=== PATIENT | female | born 1950 | race Caucasian/White ===

== ENCOUNTER → 2021-05-04 | Outpatient (CLI) | payer MEDICARE ==
[~2021-05-04] MED LIST: VIBRAMYCIN100 MG PO
== END | disposition home or self-care (01) ==
LOC: RESCLI 10:11
PROVIDERS: ATTEND Internal Medicine
DX: J44.9 Chronic obstructive pulmonary disease, unspecified (principal); I25.10 Atherosclerotic heart disease of native coronary artery without angina pectoris; K21.9 Gastro-esophageal reflux disease without esophagitis; F32.9 Major depressive disorder, single episode, unspecified; F41.1 Generalized anxiety disorder; I10 Essential (primary) hypertension; Z79.82 Long term (current) use of aspirin; Z79.899 Other long term (current) drug therapy

== ENCOUNTER → 2021-11-20 | Outpatient (CLI) | payer MEDICARE | END | disposition home or self-care (01) | LOC: RESCLI 00:39 | PROVIDERS: ATTEND Internal Medicine | DX: I11.9 Hypertensive heart disease without heart failure (principal); I25.10 Atherosclerotic heart disease of native coronary artery without angina pectoris; J44.9 Chronic obstructive pulmonary disease, unspecified; F32.9 Major depressive disorder, single episode, unspecified; F41.1 Generalized anxiety disorder; G47.00 Insomnia, unspecified; L30.9 Dermatitis, unspecified; K21.9 Gastro-esophageal reflux disease without esophagitis; Z79.899 Other long term (current) drug therapy ==

== ENCOUNTER → 2022-11-14 | Outpatient (CLI) | payer MEDICARE | END | disposition home or self-care (01) | LOC: RESCLI 10:48 | PROVIDERS: ATTEND Internal Medicine | DX: F32.9 Major depressive disorder, single episode, unspecified (principal); F41.1 Generalized anxiety disorder; I10 Essential (primary) hypertension; J44.9 Chronic obstructive pulmonary disease, unspecified; L30.9 Dermatitis, unspecified; I25.10 Atherosclerotic heart disease of native coronary artery without angina pectoris; Z88.0 Allergy status to penicillin; Z88.2 Allergy status to sulfonamides; Z88.8 Allergy status to other drugs, medicaments and biological substances; Z87.891 Personal history of nicotine dependence; Z82.49 Family history of ischemic heart disease and other diseases of the circulatory system; Z90.49 Acquired absence of other specified parts of digestive tract; Z90.710 Acquired absence of both cervix and uterus; Z98.890 Other specified postprocedural states; Z79.82 Long term (current) use of aspirin; Z79.899 Other long term (current) drug therapy ==

== ENCOUNTER 2023-12-30 19:28 | Inpatient (IN) | payer MEDICARE ==
[~2023-12-30] VITALS: Ht 162.5 cm; Wt 112.0 kg
[2023-12-30 19:35] VITALS: BP 138/84
[2023-12-30] MEDS ORDERED: Dexamethasone Sodium Phospha 20 MG/5 ML VIAL IV ONE (19:45)
[2023-12-30] MEDS ORDERED: Albuterol Sulf/Ipratropium 3 ML VIAL NEB SCH (20:00)
[2023-12-30 20:02] LABS: BASO % 0.3 % (0.0-1.0); EOS # 0.2 10*3/uL (0.0-0.4); EOS % 1.4 % (1.0-4.0); HEMATOCRIT 31.6 % (37.0-47.0); LYMPH # 0.8 10*3/uL (1.3-4.4); LYMPH % 6.5 % (27.0-41.0); MEAN CELL VOLUME 101.6 fl (81.0-99.0); MEAN CORPUSCULAR HGB 31.8 pg (27.0-31.0); MEAN CORPUSCULAR HGB CONC 31.3 g/dl (33.0-37.0); MEAN PLATELET VOLUME 10.1 fl (9.6-12.3); MONO # 0.4 10*3/uL (0.1-1.0); MONO % 3.3 % (3.0-9.0); NEUT # 10.6 10*3/uL (2.3-7.9); NEUT % 86.6 % (47.0-73.0); PLATELET COUNT AUTOMATED 173 10*3/uL (130-400); RED BLOOD COUNT 3.11 10*6/uL (4.10-5.10); RED CELL DISTRI WIDTH 14.4 % (0-14.5); WHITE BLOOD COUNT 12.2 10*3/uL (4.8-10.8)
[2023-12-30 20:13] LABS: ABG BASE EXCESS 7.3 mmol/L (-2.0-2.0); ARTERIAL BLOOD GAS PH 7.38 (7.35-7.45)
[2023-12-30 20:15] LABS: ACT PARTIAL THROMBO TIME 24.8 SECONDS (20.0-32.1)
[2023-12-30 20:20] LABS: ALKALINE PHOSPHATASE 82 U/L (46-116); BUN 22 mg/dl (9-23); CHLORIDE 98 mmol/L (98-107); TOTAL PROTEIN 6.6 gm/dL (6.0-8.0)
[2023-12-30 20:21] LABS: SGPT/ALT < 7 U/L (5-49)
[2023-12-30] MEDS ORDERED: Ceftriaxone Sodium 2 GM in SYRINGE INFUSION 20 ML IV ONE (20:40)
[2023-12-30] MEDS ORDERED: ASPIRIN, CHEWABLE 81 MG TAB PO ONE (20:50)
[2023-12-30] MEDS ORDERED: IOHEXOL 350 MG/ML 100 ML VIAL IV ONE (21:20)
[2023-12-30] MEDS ORDERED: SODIUM CHLORIDE 0.9% 100 ML BAG IV ONE (21:20)
[2023-12-30] MEDS ORDERED: MAGNESIUM SULFATE 50 ML IV ONE (21:30)
[2023-12-30] MEDS ORDERED: Iodixanol 320 100 ML VIAL IV ONE (21:35)
[2023-12-30] MEDS ORDERED: FUROSEMIDE 40 MG/4 ML VIAL IV ONE (22:20)
[2023-12-30] MEDS ORDERED: HEPARIN SODIUM 250 ML IV SCH (22:25)
[2023-12-30] MEDS ORDERED: FUROSEMIDE40 MG PO (23:22)
[2023-12-30 23:41] VITALS: BP 139/65
[2023-12-31] VITALS (7 sets, daily range): BP systolic 90–149; BP diastolic 48–110
[2023-12-31] MEDS ORDERED: ASPIRIN ADULT L81 M1 PO (00:55)
[2023-12-31] MEDS ORDERED: ADVAIR 250/501 EA INH (00:55)
[2023-12-31] MEDS ORDERED: SPIRIVA18 MCG PO (00:55)
[2023-12-31] MEDS ORDERED: DIOVAN HCT 1601 EACH PO ×2 (00:56→15:47)
[2023-12-31] MEDS ORDERED: SERTRALINE HYD100 MG PO (00:56)
[2023-12-31] MEDS ORDERED: PROAIR RESPICL90 MCG INH (00:57)
[2023-12-31] MEDS ORDERED: LIPITOR20 MG PO (00:59)
[2023-12-31] MEDS ORDERED: PRILOSEC20 M1 PO (00:59)
[2023-12-31] MEDS ORDERED: KLOR-CON M2020 ME1 PO (01:01)
[2023-12-31] MEDS ORDERED: METOPROLOL25 MG PO (01:01)
[2023-12-31] MEDS ORDERED: XANAX1 MG PO (01:01)
[2023-12-31] MEDS ORDERED: ALDACTONE25 MG PO (01:02)
[2023-12-31] MEDS ORDERED: ACETAMINOPHEN 325 MG TAB PO PRN (01:15)
[2023-12-31] MEDS ORDERED: MORPHINE Sulfate 2 MG/ML SYR IV PRN (01:15)
[2023-12-31] MEDS ORDERED: ACETAMINOPHEN 650 MG SUPP R PRN (01:15)
[2023-12-31] MEDS ORDERED: Acetaminophen/Hydrocodone 5 MG/325 MG TABLET PO PRN (01:15)
[2023-12-31] MEDS ORDERED: BISACODYL 5 MG TAB PO PRN (01:15)
[2023-12-31] MEDS ORDERED: Magnesium Hydroxide 30 ML UDC PO PRN (01:15)
[2023-12-31] MEDS ORDERED: Ondansetron Hydrochloride 4 MG/2 ML VIAL IV PRN (01:15)
[2023-12-31] MEDS ORDERED: BISACODYL 10 MG SUPP R PRN (01:15)
[2023-12-31] MEDS ORDERED: TEMAZEPAM 15 MG CAP PO PRN (01:15)
[2023-12-31] MEDS ORDERED: Albuterol Sulf/Ipratropium 3 ML VIAL NEB SCH (01:30)
[2023-12-31 05:02] LABS: ACT PARTIAL THROMBO TIME 32.4 SECONDS (20.0-32.1)
[2023-12-31 05:20] LABS: ALKALINE PHOSPHATASE 79 U/L (46-116); BUN 25 mg/dl (9-23); CHLORIDE 99 mmol/L (98-107); CHOLESTEROL 139 mg/dL (<200); FREE T4 0.95 ng/dl (0.89-1.76); LDL CHOLESTEROL 60 mg/dL (9-159); TOTAL PROTEIN 6.7 gm/dL (6.0-8.0); TRIGLYCERIDES 68 mg/dl (<150)
[2023-12-31 05:21] LABS: VITAMIN D, 25-HYDROXY 14.4 ng/mL (30-100)
[2023-12-31 05:26] LABS: SGPT/ALT < 7 U/L (5-49)
[2023-12-31 06:32] LABS: HEMATOCRIT 30.7 % (37.0-47.0); MEAN CORPUSCULAR HGB 31.2 pg (27.0-31.0); MEAN CORPUSCULAR HGB CONC 30.3 g/dl (33.0-37.0); MEAN PLATELET VOLUME 10.6 fl (9.6-12.3); PLATELET COUNT AUTOMATED 160 10*3/uL (130-400); RED BLOOD COUNT 2.98 10*6/uL (4.10-5.10); RED CELL DISTRI WIDTH 14.1 % (0-14.5); WHITE BLOOD COUNT 10.5 10*3/uL (4.8-10.8)
[2023-12-31 06:36] LABS: MANUAL DIFF REFLEX YES
[2023-12-31 07:09] LABS: PLATELET SUFFICIENCY NORMAL (NORMAL); POLYCHROMASIA SLIGHT; TOTAL CELLS COUNTED 100 #CELLS
[2023-12-31 07:10] LABS: ROULEAUX SLIGHT
[2023-12-31] MEDS ORDERED: AZITHROMYCIN 250 ML IV SCH (09:00)
[2023-12-31] MEDS ORDERED: Cholecalciferol 2,000 UNIT TABLET (50 MCG) PO SCH (10:00)
[2023-12-31] MEDS ORDERED: ASPIRIN ENTERIC COATED 81 MG TAB PO SCH (10:00)
[2023-12-31] MEDS ORDERED: Ceftriaxone Sodium 2 GM in SYRINGE INFUSION 20 ML IV SCH (10:00)
[2023-12-31] MEDS ORDERED: methylPREDNISolone sod succ 40 MG VIAL IV SCH ×2 (10:00)
[2023-12-31] MEDS ORDERED: FUROSEMIDE 40 MG/4 ML VIAL IV SCH (10:00)
[2023-12-31] MEDS ORDERED: Metoprolol Tartrate 25 MG TAB PO SCH (10:00)
[2023-12-31] MEDS ORDERED: Dextromethorphan Hydrobromid 1 TAB TAB PO SCH (10:00)
[2023-12-31] MEDS ORDERED: ATORVASTATIN CALCIUM 80 MG TAB PO SCH (10:00)
[2023-12-31] MEDS ORDERED: ALPRAZolam 0.5 MG TAB PO PRN (13:00)
[2024-01-01] VITALS: BP 138/72
[2024-01-01 03:31] LABS: POTASSIUM 4.5 mmol/L (3.4-5.1)
[2024-01-01] MEDS ORDERED: OMEPRAZOLE 20 MG CAP PO SCH (06:00)
[2024-01-01 09:00] VITALS: BP 138/54
[2024-01-01] MEDS ORDERED: Losartan Potassium 50 MG TAB PO SCH (10:00)
[2024-01-01] MEDS ORDERED: Sertraline Hydrochloride 50 MG TAB PO SCH (10:00)
[2024-01-01] MEDS ORDERED: TIOTROPIUM BROMIDE 18 MCG CAPSULES INHALER INH SCH (10:00)
[2024-01-01] MEDS ORDERED: Technetium Tc 99M Tetrofosmi 0.23 MG KIT IJ SCH (13:10)
[2024-01-01 16:00] VITALS: BP 118/53
[2024-01-01 20:00] VITALS: BP 134/42
[2024-01-01] MEDS ORDERED: hydrOXYzine pamoate 25 MG CAP PO ONE (22:20)
[2024-01-02] VITALS: BP 141/54
[2024-01-02 05:37] LABS: POTASSIUM 4.4 mmol/L (3.4-5.1)
[2024-01-02] MEDS ORDERED: Regadenoson 0.4 MG/5 ML SYR IV ONE (06:43)
[2024-01-02 08:00] VITALS: BP 129/43
[2024-01-02 09:42] LABS: BASO % 0.4 % (0.0-1.0); EOS # 0.2 10*3/uL (0.0-0.4); EOS % 1.6 % (1.0-4.0); HEMATOCRIT 27.9 % (37.0-47.0); LYMPH # 1.5 10*3/uL (1.3-4.4); LYMPH % 15.4 % (27.0-41.0); MEAN CELL VOLUME 104.9 fl (81.0-99.0); MEAN CORPUSCULAR HGB 31.6 pg (27.0-31.0); MEAN CORPUSCULAR HGB CONC 30.1 g/dl (33.0-37.0); MEAN PLATELET VOLUME 10.7 fl (9.6-12.3); MONO # 0.6 10*3/uL (0.1-1.0); MONO % 6.5 % (3.0-9.0); NEUT # 7.3 10*3/uL (2.3-7.9); NEUT % 74.2 % (47.0-73.0); NUCLEATED RED BLOOD CELL 0.3 % (0.0-0.0); PLATELET COUNT AUTOMATED 150 10*3/uL (130-400); RED BLOOD COUNT 2.66 10*6/uL (4.10-5.10); RED CELL DISTRI WIDTH 14.6 % (0-14.5); WHITE BLOOD COUNT 9.9 10*3/uL (4.8-10.8)
[2024-01-02 12:00] VITALS: BP 155/92
[2024-01-02] MEDS ORDERED: HEPARIN SODIUM 5,000 UNIT/ML VIAL SC SCH (14:00)
[2024-01-02 16:00] VITALS: BP 141/34
[2024-01-02 20:00] VITALS: BP 126/59
[2024-01-03] VITALS: BP 120/58
[2024-01-03 06:05] LABS: BUN 35 mg/dl (9-23); CHLORIDE 98 mmol/L (98-107); POTASSIUM 4.2 mmol/L (3.4-5.1)
[2024-01-03 06:33] LABS: BASO # 0.1 10*3/uL (0.0-0.1); BASO % 0.5 % (0.0-1.0); EOS # 0.3 10*3/uL (0.0-0.4); EOS % 2.5 % (1.0-4.0); HEMATOCRIT 26.8 % (37.0-47.0); LYMPH # 1.3 10*3/uL (1.3-4.4); LYMPH % 12.6 % (27.0-41.0); MEAN CELL VOLUME 103.5 fl (81.0-99.0); MEAN PLATELET VOLUME 10.9 fl (9.6-12.3); MONO # 0.6 10*3/uL (0.1-1.0); MONO % 5.9 % (3.0-9.0); NEUT # 7.8 10*3/uL (2.3-7.9); NEUT % 76.5 % (47.0-73.0); PLATELET COUNT AUTOMATED 167 10*3/uL (130-400); RED BLOOD COUNT 2.59 10*6/uL (4.10-5.10); RED CELL DISTRI WIDTH 14.4 % (0-14.5); WHITE BLOOD COUNT 10.2 10*3/uL (4.8-10.8)
[2024-01-03 08:00] VITALS: BP 126/57
[2024-01-03] MEDS ORDERED: FUROSEMIDE 40 MG TAB PO SCH (10:00)
[2024-01-03] MEDS ORDERED: FUROSEMIDE 20 MG/2 ML VIAL IV SCH (10:00)
[2024-01-03 12:00] VITALS: BP 125/52
[2024-01-03 16:00] VITALS: BP 146/119
[2024-01-03 18:32] VITALS: BP 101/50
[2024-01-03 20:00] VITALS: BP 121/56
[2024-01-04] VITALS: BP 124/56
[2024-01-04 07:10] LABS: BASO % 0.3 % (0.0-1.0); EOS # 0.3 10*3/uL (0.0-0.4); EOS % 3.1 % (1.0-4.0); LYMPH # 1.2 10*3/uL (1.3-4.4); LYMPH % 11.8 % (27.0-41.0); MEAN CELL VOLUME 101.6 fl (81.0-99.0); MEAN CORPUSCULAR HGB CONC 31.5 g/dl (33.0-37.0); MEAN PLATELET VOLUME 10.9 fl (9.6-12.3); MONO # 0.6 10*3/uL (0.1-1.0); NUCLEATED RED BLOOD CELL 0.3 % (0.0-0.0); PLATELET COUNT AUTOMATED 156 10*3/uL (130-400); RED BLOOD COUNT 2.56 10*6/uL (4.10-5.10); RED CELL DISTRI WIDTH 14.7 % (0-14.5); WHITE BLOOD COUNT 10.4 10*3/uL (4.8-10.8)
[2024-01-04 07:39] LABS: POTASSIUM 4.2 mmol/L (3.4-5.1)
[2024-01-04 08:00] VITALS: BP 103/54
[2024-01-04 12:00] VITALS: BP 112/52
[2024-01-04 16:30] VITALS: BP 135/90
[2024-01-04 20:00] VITALS: BP 111/48
[2024-01-05] VITALS: BP 115/54
[2024-01-05 05:53] LABS: POTASSIUM 4.1 mmol/L (3.4-5.1)
[2024-01-05 06:20] LABS: BASO # 0.1 10*3/uL (0.0-0.1); BASO % 0.4 % (0.0-1.0); EOS # 0.4 10*3/uL (0.0-0.4); EOS % 2.9 % (1.0-4.0); HEMATOCRIT 27.2 % (37.0-47.0); LYMPH # 1.2 10*3/uL (1.3-4.4); LYMPH % 9.5 % (27.0-41.0); MEAN CELL VOLUME 104.6 fl (81.0-99.0); MEAN CORPUSCULAR HGB 31.5 pg (27.0-31.0); MEAN CORPUSCULAR HGB CONC 30.1 g/dl (33.0-37.0); MEAN PLATELET VOLUME 10.9 fl (9.6-12.3); MONO # 0.7 10*3/uL (0.1-1.0); MONO % 5.4 % (3.0-9.0); NEUT # 9.7 10*3/uL (2.3-7.9); NEUT % 80.1 % (47.0-73.0); NUCLEATED RED BLOOD CELL 0.2 % (0.0-0.0); PLATELET COUNT AUTOMATED 156 10*3/uL (130-400); RED CELL DISTRI WIDTH 14.7 % (0-14.5); WHITE BLOOD COUNT 12.1 10*3/uL (4.8-10.8)
[2024-01-05 08:00] VITALS: BP 130/45
[2024-01-05 12:00] VITALS: BP 118/40
[2024-01-05] MEDS ORDERED: DICLOFENAC SODIUM 100 GM TUBE T PRN (14:10)
[2024-01-05 16:00] VITALS: BP 109/36
[2024-01-05 20:00] VITALS: BP 112/49
[2024-01-06] VITALS: BP 114/52
[2024-01-06 07:11] LABS: BASO % 0.3 % (0.0-1.0); EOS # 0.2 10*3/uL (0.0-0.4); EOS % 2.1 % (1.0-4.0); LYMPH % 8.8 % (27.0-41.0); MEAN CELL VOLUME 102.3 fl (81.0-99.0); MEAN CORPUSCULAR HGB 32.2 pg (27.0-31.0); MEAN CORPUSCULAR HGB CONC 31.5 g/dl (33.0-37.0); MEAN PLATELET VOLUME 10.9 fl (9.6-12.3); MONO # 0.7 10*3/uL (0.1-1.0); MONO % 5.8 % (3.0-9.0); NEUT # 9.3 10*3/uL (2.3-7.9); NEUT % 81.5 % (47.0-73.0); NUCLEATED RED BLOOD CELL 0.2 % (0.0-0.0); PLATELET COUNT AUTOMATED 155 10*3/uL (130-400); RED BLOOD COUNT 2.64 10*6/uL (4.10-5.10); WHITE BLOOD COUNT 11.5 10*3/uL (4.8-10.8)
[2024-01-06 08:00] VITALS: BP 135/54
[2024-01-06 12:00] VITALS: BP 125/61
[2024-01-06 16:00] VITALS: BP 129/61
[2024-01-06 20:00] VITALS: BP 116/44
[2024-01-07] VITALS: BP 135/60
[2024-01-07 06:52] LABS: BASO % 0.3 % (0.0-1.0); EOS # 0.2 10*3/uL (0.0-0.4); EOS % 2.1 % (1.0-4.0); HEMATOCRIT 26.1 % (37.0-47.0); LYMPH # 0.9 10*3/uL (1.3-4.4); LYMPH % 7.8 % (27.0-41.0); MEAN CELL VOLUME 103.2 fl (81.0-99.0); MEAN CORPUSCULAR HGB 31.6 pg (27.0-31.0); MEAN CORPUSCULAR HGB CONC 30.7 g/dl (33.0-37.0); MONO # 0.7 10*3/uL (0.1-1.0); MONO % 6.6 % (3.0-9.0); NEUT # 8.9 10*3/uL (2.3-7.9); NEUT % 81.5 % (47.0-73.0); PLATELET COUNT AUTOMATED 171 10*3/uL (130-400); RED BLOOD COUNT 2.53 10*6/uL (4.10-5.10); RED CELL DISTRI WIDTH 15.3 % (0-14.5); WHITE BLOOD COUNT 10.9 10*3/uL (4.8-10.8)
[2024-01-07 07:38] LABS: POTASSIUM 4.1 mmol/L (3.4-5.1)
[2024-01-07 08:00] VITALS: BP 132/52
[2024-01-07 12:00] VITALS: BP 133/54
[2024-01-07 16:00] VITALS: BP 113/84
[2024-01-07 20:00] VITALS: BP 109/60
[2024-01-07 21:49] VITALS: BP 114/57
[2024-01-08] VITALS: BP 109/50
[2024-01-08] MEDS ORDERED: Ceftriaxone Sodium 2 GM in SYRINGE INFUSION 20 ML IV SCH (00:35)
[2024-01-08] MEDS ORDERED: AZITHROMYCIN 250 ML IV SCH (00:35)
[2024-01-08 06:45] LABS: ABG BASE EXCESS 2.9 mmol/L (-2.0-2.0); ARTERIAL BLOOD GAS PH 7.312 (7.35-7.45)
[2024-01-08 06:46] LABS: BASO # 0.1 10*3/uL (0.0-0.1); BASO % 0.3 % (0.0-1.0); EOS # 0.2 10*3/uL (0.0-0.4); EOS % 1.5 % (1.0-4.0); LYMPH # 1.3 10*3/uL (1.3-4.4); MEAN CELL VOLUME 105.5 fl (81.0-99.0); MEAN CORPUSCULAR HGB 31.6 pg (27.0-31.0); MEAN PLATELET VOLUME 11.4 fl (9.6-12.3); MONO # 1.1 10*3/uL (0.1-1.0); MONO % 7.1 % (3.0-9.0); NEUT # 12.8 10*3/uL (2.3-7.9); NEUT % 81.8 % (47.0-73.0); NUCLEATED RED BLOOD CELL 0.1 % (0.0-0.0); RED BLOOD COUNT 2.75 10*6/uL (4.10-5.10); RED CELL DISTRI WIDTH 15.6 % (0-14.5); WHITE BLOOD COUNT 15.7 10*3/uL (4.8-10.8)
[2024-01-08 07:07] LABS: PLATELET COUNT AUTOMATED 252 10*3/uL (130-400)
[2024-01-08 07:24] LABS: POTASSIUM 4.1 mmol/L (3.4-5.1)
[2024-01-08 08:00] VITALS: BP 127/58
[2024-01-08] MEDS ORDERED: Vancomycin Hydrochloride 1,000 MG VIAL IV SCH (09:50)
[2024-01-08] MEDS ORDERED: CEFEPIME HYDROCHLORIDE IV SCH (11:00)
[2024-01-08] MEDS ORDERED: SODIUM CHLORIDE 0.9% IV SCH (11:00)
[2024-01-08] MEDS ORDERED: VANCOMYCIN/WATER FOR INJ (PEG) 250 ML IV SCH (12:00)
[2024-01-08 12:06] VITALS: BP 130/60
[2024-01-08 13:17] LABS: ABG BASE EXCESS 9.8 mmol/L (-2.0-2.0); ARTERIAL BLOOD GAS PH 7.336 (7.35-7.45)
[2024-01-08 16:00] VITALS: BP 105/50
[2024-01-08 20:00] VITALS: BP 106/49
[2024-01-09] VITALS: BP 96/47
[2024-01-09] MEDS ORDERED: AZITHROMYCIN 250 ML IV SCH (01:00)
[2024-01-09] MEDS ORDERED: Ceftriaxone Sodium 2 GM in SYRINGE INFUSION 20 ML IV SCH (02:00)
[2024-01-09 06:39] LABS: ABG BASE EXCESS 8.2 mmol/L (-2.0-2.0); ARTERIAL BLOOD GAS PH 7.305 (7.35-7.45)
[2024-01-09 07:02] LABS: BASO % 0.3 % (0.0-1.0); EOS # 0.5 10*3/uL (0.0-0.4); EOS % 4.7 % (1.0-4.0); HEMATOCRIT 24.6 % (37.0-47.0); LYMPH # 0.6 10*3/uL (1.3-4.4); LYMPH % 6.2 % (27.0-41.0); MEAN CELL VOLUME 103.4 fl (81.0-99.0); MEAN CORPUSCULAR HGB 32.4 pg (27.0-31.0); MEAN CORPUSCULAR HGB CONC 31.3 g/dl (33.0-37.0); MEAN PLATELET VOLUME 11.4 fl (9.6-12.3); MONO # 0.6 10*3/uL (0.1-1.0); MONO % 5.8 % (3.0-9.0); NEUT # 8.4 10*3/uL (2.3-7.9); NEUT % 81.7 % (47.0-73.0); RED BLOOD COUNT 2.38 10*6/uL (4.10-5.10); RED CELL DISTRI WIDTH 15.8 % (0-14.5); WHITE BLOOD COUNT 10.3 10*3/uL (4.8-10.8)
[2024-01-09 07:03] LABS: PLATELET COUNT AUTOMATED 172 10*3/uL (130-400)
[2024-01-09 08:00] VITALS: BP 142/70
[2024-01-09] MEDS ORDERED: SODIUM CHLORIDE 0.9% 500 ML IV ONE (10:50)
[2024-01-09 12:00] VITALS: BP 108/44
[2024-01-09 16:00] VITALS: BP 108/50
[2024-01-09 20:00] VITALS: BP 99/79
[2024-01-10] VITALS: BP 112/48
[2024-01-10 05:02] LABS: POTASSIUM 3.5 mmol/L (3.4-5.1)
[2024-01-10 06:02] LABS: BASO % 0.3 % (0.0-1.0); EOS # 0.6 10*3/uL (0.0-0.4); EOS % 6.1 % (1.0-4.0); HEMATOCRIT 23.8 % (37.0-47.0); LYMPH # 0.7 10*3/uL (1.3-4.4); LYMPH % 8.1 % (27.0-41.0); MEAN CELL VOLUME 102.1 fl (81.0-99.0); MEAN CORPUSCULAR HGB 32.2 pg (27.0-31.0); MEAN CORPUSCULAR HGB CONC 31.5 g/dl (33.0-37.0); MEAN PLATELET VOLUME 11.3 fl (9.6-12.3); MONO # 0.5 10*3/uL (0.1-1.0); MONO % 5.6 % (3.0-9.0); NEUT # 7.2 10*3/uL (2.3-7.9); NEUT % 78.6 % (47.0-73.0); PLATELET COUNT AUTOMATED 192 10*3/uL (130-400); RED BLOOD COUNT 2.33 10*6/uL (4.10-5.10); RED CELL DISTRI WIDTH 15.6 % (0-14.5); WHITE BLOOD COUNT 9.1 10*3/uL (4.8-10.8)
[2024-01-10 07:11] LABS: ABG BASE EXCESS 8.8 mmol/L (-2.0-2.0); ARTERIAL BLOOD GAS PH 7.38 (7.35-7.45)
[2024-01-10 08:00] VITALS: BP 125/66
[2024-01-10 12:00] VITALS: BP 117/53
[2024-01-10 14:30] VITALS: BP 136/72
[2024-01-10 20:00] VITALS: BP 122/53
[2024-01-11] VITALS: BP 123/56
[2024-01-11 05:14] LABS: POTASSIUM 3.7 mmol/L (3.4-5.1)
[2024-01-11 06:10] LABS: BASO % 0.4 % (0.0-1.0); EOS # 0.5 10*3/uL (0.0-0.4); EOS % 6.5 % (1.0-4.0); LYMPH # 0.8 10*3/uL (1.3-4.4); LYMPH % 9.5 % (27.0-41.0); MEAN CELL VOLUME 102.2 fl (81.0-99.0); MEAN CORPUSCULAR HGB CONC 31.3 g/dl (33.0-37.0); MEAN PLATELET VOLUME 11.1 fl (9.6-12.3); MONO # 0.5 10*3/uL (0.1-1.0); MONO % 6.3 % (3.0-9.0); NEUT % 75.9 % (47.0-73.0); PLATELET COUNT AUTOMATED 202 10*3/uL (130-400); RED BLOOD COUNT 2.25 10*6/uL (4.10-5.10); RED CELL DISTRI WIDTH 15.4 % (0-14.5); WHITE BLOOD COUNT 7.9 10*3/uL (4.8-10.8)
[2024-01-11 08:00] VITALS: BP 139/50
[2024-01-11 12:00] VITALS: BP 117/60
[2024-01-11 16:00] VITALS: BP 136/55
[2024-01-11 20:00] VITALS: BP 135/54
[2024-01-12] VITALS: BP 119/50
[2024-01-12] MEDS ORDERED: ALPRAZolam 0.5 MG TAB PO PRN (00:15)
[2024-01-12 06:30] LABS: POTASSIUM 3.8 mmol/L (3.4-5.1)
[2024-01-12 06:47] LABS: BASO % 0.3 % (0.0-1.0); EOS # 0.6 10*3/uL (0.0-0.4); EOS % 7.1 % (1.0-4.0); HEMATOCRIT 24.6 % (37.0-47.0); LYMPH # 0.9 10*3/uL (1.3-4.4); LYMPH % 10.1 % (27.0-41.0); MEAN CELL VOLUME 103.8 fl (81.0-99.0); MEAN CORPUSCULAR HGB 32.5 pg (27.0-31.0); MEAN CORPUSCULAR HGB CONC 31.3 g/dl (33.0-37.0); MEAN PLATELET VOLUME 10.8 fl (9.6-12.3); MONO # 0.5 10*3/uL (0.1-1.0); MONO % 5.3 % (3.0-9.0); NEUT # 6.6 10*3/uL (2.3-7.9); NEUT % 75.5 % (47.0-73.0); PLATELET COUNT AUTOMATED 222 10*3/uL (130-400); RED BLOOD COUNT 2.37 10*6/uL (4.10-5.10); RED CELL DISTRI WIDTH 15.3 % (0-14.5); WHITE BLOOD COUNT 8.8 10*3/uL (4.8-10.8)
[2024-01-12 08:00] VITALS: BP 126/46
[2024-01-12 12:00] VITALS: BP 114/52
[2024-01-12 16:00] VITALS: BP 118/49
[2024-01-12 20:00] VITALS: BP 125/49
[2024-01-13] VITALS: BP 146/79
[2024-01-13 07:19] LABS: POTASSIUM 3.7 mmol/L (3.4-5.1)
[2024-01-13 08:00] VITALS: BP 144/51
[2024-01-13 12:00] VITALS: BP 116/42
[2024-01-13 16:00] VITALS: BP 91/67
[2024-01-13 20:00] VITALS: BP 146/57
[2024-01-14] VITALS: BP 139/59
[2024-01-14 08:00] VITALS: BP 126/53
[2024-01-14] MEDS ORDERED: CEFEPIME1 GM/50 ML IV (10:29)
[2024-01-14] MEDS ORDERED: LOPRESSOR25 MG PO (10:29)
[2024-01-14] MEDS ORDERED: ATORVASTATIN CA80 M1 PO (10:29)
[2024-01-14] MEDS ORDERED: VITAMIN D350 MCG PO (10:29)
== END 2024-01-14 12:13 | DRG 871 ==
LOC: ED 19:28 → 4E 22:51 → EDHOLD 22:51 → 4E 12-31 12:54
PROVIDERS: Emergency Medicine; Internal Medicine; Internal Medicine Critical Care Medicine; Student in an Organized Health Care Education/Training Program; ADMIT Internal Medicine; ATTEND Internal Medicine
PROC: 5A0935A Assistance with Respiratory Ventilation, Less than 24 Consecutive Hours, High Flow/Velocity Cannula (ICD-10-PCS; 2023-12-31)
PROC: 5A0935A Assistance with Respiratory Ventilation, Less than 24 Consecutive Hours, High Flow/Velocity Cannula (ICD-10-PCS; 2024-01-01)
PROC: 4A02XM4 Measurement of Cardiac Total Activity, External Approach (ICD-10-PCS; principal; 2024-01-02)
PROC: 3E073KZ Introduction of Other Diagnostic Substance into Coronary Artery, Percutaneous Approach (ICD-10-PCS; 2024-01-02)
PROC: 5A0935A Assistance with Respiratory Ventilation, Less than 24 Consecutive Hours, High Flow/Velocity Cannula (ICD-10-PCS; 2024-01-02)
PROC: 5A09357 Assistance with Respiratory Ventilation, Less than 24 Consecutive Hours, Continuous Positive Airway Pressure (ICD-10-PCS; 2024-01-02)
PROC: 5A0945A Assistance with Respiratory Ventilation, 24-96 Consecutive Hours, High Flow/Velocity Cannula (ICD-10-PCS; 2024-01-03)
PROC: 5A0935A Assistance with Respiratory Ventilation, Less than 24 Consecutive Hours, High Flow/Velocity Cannula (ICD-10-PCS; 2024-01-04)
PROC: 5A0935A Assistance with Respiratory Ventilation, Less than 24 Consecutive Hours, High Flow/Velocity Cannula (ICD-10-PCS; 2024-01-05)
PROC: 5A09357 Assistance with Respiratory Ventilation, Less than 24 Consecutive Hours, Continuous Positive Airway Pressure (ICD-10-PCS; 2024-01-05)
PROC: 5A0935A Assistance with Respiratory Ventilation, Less than 24 Consecutive Hours, High Flow/Velocity Cannula (ICD-10-PCS; 2024-01-06)
PROC: 5A09357 Assistance with Respiratory Ventilation, Less than 24 Consecutive Hours, Continuous Positive Airway Pressure (ICD-10-PCS; 2024-01-06)
PROC: 5A0935A Assistance with Respiratory Ventilation, Less than 24 Consecutive Hours, High Flow/Velocity Cannula (ICD-10-PCS; 2024-01-07)
PROC: 5A09357 Assistance with Respiratory Ventilation, Less than 24 Consecutive Hours, Continuous Positive Airway Pressure (ICD-10-PCS; 2024-01-07)
PROC: 5A09357 Assistance with Respiratory Ventilation, Less than 24 Consecutive Hours, Continuous Positive Airway Pressure (ICD-10-PCS; 2024-01-08)
PROC: 5A09357 Assistance with Respiratory Ventilation, Less than 24 Consecutive Hours, Continuous Positive Airway Pressure (ICD-10-PCS; 2024-01-09)
DX: A41.9 Sepsis, unspecified organism (principal); I21.4 Non-ST elevation (NSTEMI) myocardial infarction; J69.0 Pneumonitis due to inhalation of food and vomit; J15.69 Pneumonia due to other Gram-negative bacteria; I50.23 Acute on chronic systolic (congestive) heart failure; N17.0 Acute kidney failure with tubular necrosis; J96.21 Acute and chronic respiratory failure with hypoxia; J96.22 Acute and chronic respiratory failure with hypercapnia; J44.1 Chronic obstructive pulmonary disease with (acute) exacerbation; J44.0 Chronic obstructive pulmonary disease with (acute) lower respiratory infection; E87.3 Alkalosis; Z68.41 Body mass index [BMI] 40.0-44.9, adult; R65.20 Severe sepsis without septic shock; D53.9 Nutritional anemia, unspecified; E83.42 Hypomagnesemia; R73.9 Hyperglycemia, unspecified; I35.0 Nonrheumatic aortic (valve) stenosis; I11.0 Hypertensive heart disease with heart failure; E66.01 Morbid (severe) obesity due to excess calories; J45.20 Mild intermittent asthma, uncomplicated; Z20.822 Contact with and (suspected) exposure to COVID-19; J84.10 Pulmonary fibrosis, unspecified; J98.4 Other disorders of lung; Z88.0 Allergy status to penicillin; Z88.2 Allergy status to sulfonamides; Z88.1 Allergy status to other antibiotic agents; Z90.49 Acquired absence of other specified parts of digestive tract; Z90.710 Acquired absence of both cervix and uterus; Z90.11 Acquired absence of right breast and nipple; Z95.5 Presence of coronary angioplasty implant and graft; Z82.5 Family history of asthma and other chronic lower respiratory diseases; Z79.51 Long term (current) use of inhaled steroids; Z79.82 Long term (current) use of aspirin; Z79.899 Other long term (current) drug therapy

== ENCOUNTER → 2024-03-11 | Outpatient (CLI) | payer MEDICARE ==
[~2024-03-11] MED LIST changes: +ADVAIR 250/501 EA INH; +ALDACTONE25 MG PO; +ASPIRIN ADULT L81 M1 PO; +ATORVASTATIN CA80 M1 PO; +CEFEPIME1 GM/50 ML IV; +DIOVAN HCT 1601 EACH PO; +FUROSEMIDE40 MG PO; +KLOR-CON M2020 ME1 PO; +LIPITOR20 MG PO; +LOPRESSOR25 MG PO; +METOPROLOL25 MG PO; +PRILOSEC20 M1 PO; +PROAIR RESPICL90 MCG INH; +SERTRALINE HYD100 MG PO; +SPIRIVA18 MCG PO; +VITAMIN D350 MCG PO; +XANAX1 MG PO
== END | disposition home or self-care (01) ==
LOC: RESCLI 01:38
PROVIDERS: ATTEND Student in an Organized Health Care Education/Training Program
DX: J44.9 Chronic obstructive pulmonary disease, unspecified (principal); I25.10 Atherosclerotic heart disease of native coronary artery without angina pectoris; F32.9 Major depressive disorder, single episode, unspecified; K21.9 Gastro-esophageal reflux disease without esophagitis; F41.1 Generalized anxiety disorder; E78.5 Hyperlipidemia, unspecified; I11.0 Hypertensive heart disease with heart failure; I50.9 Heart failure, unspecified; Z98.890 Other specified postprocedural states; Z90.49 Acquired absence of other specified parts of digestive tract; Z87.891 Personal history of nicotine dependence; Z88.8 Allergy status to other drugs, medicaments and biological substances; Z88.0 Allergy status to penicillin; Z88.2 Allergy status to sulfonamides; Z79.899 Other long term (current) drug therapy

== ENCOUNTER → 2024-05-12 | Outpatient (CLI) | payer MEDICARE ==
[2024-05-13 12:08] LABS: ANTISCLERODERMA-70 AB <0.2 AI (0.0-0.9)
[2024-05-13 14:11] LABS: IGG SUBCLASS 1 483 mg/dL (248-810); IGG SUBCLASS 2 213 mg/dL (130-555); IGG SUBCLASS 3 70 mg/dL (15-102); IMMUNOGLOBULIN G, QNT 910 mg/dL (586-1602)
[2024-05-13 15:08] LABS: ALDOLASE 4.6 U/L (3.3-10.3)
== END | disposition home or self-care (01) ==
LOC: CT 05-03 11:00 → LAB 14:25 → CT 14:25
PROVIDERS: ATTEND Internal Medicine Critical Care Medicine
DX: J44.9 Chronic obstructive pulmonary disease, unspecified (principal); J84.113 Idiopathic non-specific interstitial pneumonitis; I51.7 Cardiomegaly; I25.10 Atherosclerotic heart disease of native coronary artery without angina pectoris; R91.1 Solitary pulmonary nodule; Z90.12 Acquired absence of left breast and nipple; Z90.11 Acquired absence of right breast and nipple

== ENCOUNTER 2024-12-09 18:20 | Inpatient (IN) | payer OTHER, MEDICARE ==
[~2024-12-09 18:20] MED LIST changes: +ACETAZOLAMIDE250 MG PO; +ALBUTEROL2.5 MG/0.5 INH; +BISACODYL10 MG RC; +CYMBALTA30 MG PO; +HYDROXYZINE PAM25 M1 PO; +Ipratropium Brom3 ML INH; +LASIX40 MG PO; +LEVOFLOXACIN500 MG PO; +Lopressor25 MG PO; +MILK OF MA400 MG/51 PO; +MUCUS RELIEF E600 MG PO; +OMEPRAZOLE MAGN20 MG PO; +Ondansetron4 MG PO; +PREDNISONE10 MG PO; +TOPROL XL50 M1 PO; +XANAX0.25 MG PO; +ZITHROMAX250 MG PO
[2024-12-09 20:00] VITALS: BP 96/51
[2024-12-09] MEDS ORDERED: MORPHINE Sulfate 2 MG/ML SYR IV PRN ×2 (21:10→21:15)
[2024-12-09] MEDS ORDERED: ATROPINE SULFATE 1% 2 ML BOTTLE SL PRN (21:15)
[2024-12-09] MEDS ORDERED: diazePAM 10 MG/2 ML SYR IV PRN (21:20)
[2024-12-09] MEDS ORDERED: diazePAM 10 MG/2 ML SYR IV SCH (21:30)
== END 2024-12-10 01:01 | DRG 871 ==
LOC: 4E 18:20
PROVIDERS: ADMIT Internal Medicine; ATTEND Internal Medicine
DX: A41.9 Sepsis, unspecified organism (principal); G93.41 Metabolic encephalopathy; N17.0 Acute kidney failure with tubular necrosis; J18.9 Pneumonia, unspecified organism; E87.1 Hypo-osmolality and hyponatremia; D53.9 Nutritional anemia, unspecified; R65.20 Severe sepsis without septic shock; E87.5 Hyperkalemia; R73.9 Hyperglycemia, unspecified; Z66 Do not resuscitate; Z78.9 Other specified health status; Z51.5 Encounter for palliative care